=== PATIENT | female | born 1965 | race Caucasian/White ===

== ENCOUNTER 2022-03-25 17:59 | Emergency (ER) | payer SELFPAY ==
[2022-03-25] MEDS ORDERED: ALPRAZolam 0.5 MG TAB ONE (18:25)
[2022-03-25] MEDS ORDERED: Meclizine HCl 25 MG TAB ONE (18:26)
== END 2022-03-25 20:13 | disposition home or self-care (01) ==
LOC: MADERS 17:59
DX: R42 Dizziness and giddiness (principal); H66.92 Otitis media, unspecified, left ear; E78.5 Hyperlipidemia, unspecified; E78.00 Pure hypercholesterolemia, unspecified; I10 Essential (primary) hypertension
CPT/HCPCS: 36416; 70450; 93005

== ENCOUNTER 2023-02-19 12:03 | Emergency (ER) | payer OTHER, SELFPAY ==
[2023-02-19] MEDS ORDERED: Ipratropium/Albuterol 3 ML NEB ONE ×2 (14:22→18:22)
[2023-02-19] MEDS ORDERED: LevoFLOXacin 750 mg/D5W 150 ml Premix Bag ONE (15:49)
[2023-02-19] MEDS ORDERED: methylPREDNISolone Sod Succ/PF 125 MG/2 ML VIAL ONE (15:49)
[2023-02-19] MEDS ORDERED: Magnesium 2 GM/50 ML BAG (IN WATER) ONE (15:49)
[2023-02-19 16:00] LABS: #Basophils 0.1 thou/uL (0.0-0.2); #Eosinphils 0.2 thou/uL (0.0-0.7); #Monocytes 0.5 thou/uL (0.11-0.59); #Neutrophils 6.8 thou/uL (1.40-6.50); %Basophils 0.9 % (0.0-1.0); %Eosinophils 1.8 % (0.0-10.0); %Lymphocytes 28.5 % (21.0-51.0); %Monocytes 4.8 % (0.0-10.0); %Neutrophils 64.1 % (42.0-75.0); Hematocrit 42.8 % (36.0-47.0); Hemoglobin 14.4 g/dL (12.0-16.0); Mean Corpuscular HGB CONC 33.7 g/dL (32.0-36.0); Mean Corpuscular Hemoglobin 31.4 pg (27.0-31.0); Mean Corpuscular Volume 93.4 fl (78.0-98.0); Mean Platelet Volume 6.3 fL (7.4-10.4); Platelet Count 387 10x3/uL (130-400); RBC Distribution Width 13.5 % (11.5-14.5); Red Blood Cell (RBC) Count 4.58 mill/uL (4.20-5.40); White Blood Cell (WBC) Count 10.7 10x3/uL (4.8-10.8)
[2023-02-19 16:15] LABS: ALT (SGPT) 14 U/L (8-55); AST (SGOT) 16 U/L (5-34); Alkaline Phosphatase 86 U/L (40-110); Anion Gap 16 mmol/L (10-20); BUN (Urea Nitrogen) 16 mg/dL (9.8-20.1); Bilirubin, Total 0.3 mg/dL (0.2-1.2); Calc. Creatinine Clearance 0 mL/min (70-130); Calcium 9.3 mg/dL (7.8-10.44); Carbon Dioxide 25 mmol/L (22-29); Chloride 101 mmol/L (98-107); Estimated GFR 77; Glucose 123 mg/dL (70-105); Magnesium 2.3 mg/dL (1.6-2.6); Sodium 138 mmol/L (136-145); Troponin I 0.013 ng/mL (< 0.028)
== END 2023-02-19 19:25 | disposition home or self-care (01) ==
LOC: MADERS 12:03
DX: R06.02 Shortness of breath (principal); F17.210 Nicotine dependence, cigarettes, uncomplicated; I10 Essential (primary) hypertension; Z20.822 Contact with and (suspected) exposure to COVID-19
CPT/HCPCS: 71046; 80053; 83735; 83880; 84484; 85025; 85379; 87635; 87804; 93005; 96365; 96367; 96375; J1956; J2930; J3475; J7620

== ENCOUNTER 2023-02-28 15:29 | Emergency (ER) | payer OTHER ==
[2023-02-28] MEDS ORDERED: methylPREDNISolone Sod Succ/PF 125 MG/2 ML VIAL ONE (15:55)
[2023-02-28] MEDS ORDERED: Ipratropium/Albuterol 3 ML NEB ONE (15:55)
[2023-02-28 16:16] LABS: #Basophils 0.1 thou/uL (0.0-0.2); #Eosinphils 0.2 thou/uL (0.0-0.7); #Lymphocytes 2.7 thou/uL (1.20-3.40); #Monocytes 0.5 thou/uL (0.11-0.59); %Basophils 0.8 % (0.0-1.0); %Eosinophils 1.6 % (0.0-10.0); %Lymphocytes 21.6 % (21.0-51.0); %Monocytes 4.1 % (0.0-10.0); %Neutrophils 71.9 % (42.0-75.0); Hematocrit 41.2 % (36.0-47.0); Hemoglobin 13.2 g/dL (12.0-16.0); Mean Corpuscular HGB CONC 31.9 g/dL (32.0-36.0); Mean Corpuscular Hemoglobin 30.4 pg (27.0-31.0); Mean Corpuscular Volume 95.4 fl (78.0-98.0); Mean Platelet Volume 6.5 fL (7.4-10.4); Platelet Count 344 10x3/uL (130-400); Red Blood Cell (RBC) Count 4.32 mill/uL (4.20-5.40); White Blood Cell (WBC) Count 12.5 10x3/uL (4.8-10.8)
[2023-02-28 16:32] LABS: ALT (SGPT) 14 U/L (8-55); AST (SGOT) 14 U/L (5-34); Albumin 3.6 g/dL (3.5-5.0); Alkaline Phosphatase 83 U/L (40-110); Anion Gap 13 mmol/L (10-20); BUN (Urea Nitrogen) 15 mg/dL (9.8-20.1); Bilirubin, Total 0.2 mg/dL (0.2-1.2); Calc. Creatinine Clearance 0 mL/min (70-130); Calcium 8.7 mg/dL (7.8-10.44); Carbon Dioxide 27 mmol/L (22-29); Chloride 101 mmol/L (98-107); Estimated GFR 76; Glucose 113 mg/dL (70-105); Potassium 4.4 mmol/L (3.5-5.1); Protein, Total 6.6 g/dL (6.0-8.3); Sodium 137 mmol/L (136-145)
[2023-02-28 16:35] LABS: Troponin I Less than 0.010 ng/mL (< 0.028)
== END 2023-02-28 17:20 | disposition home or self-care (01) ==
LOC: MADERS 15:29
DX: J44.1 Chronic obstructive pulmonary disease with (acute) exacerbation (principal); I10 Essential (primary) hypertension; F17.210 Nicotine dependence, cigarettes, uncomplicated
CPT/HCPCS: 71045; 80053; 84484; 85025; 85379; 93005; 96374; J2930; J7620

== ENCOUNTER 2023-09-07 12:14 | Emergency (ER) | payer OTHER ==
[2023-09-07] MEDS ORDERED: methylPREDNISolone Sod Succ/PF 125 MG/2 ML VIAL ONE (12:33)
[2023-09-07] MEDS ORDERED: Ipratropium/Albuterol 3 ML NEB ONE (12:33)
[2023-09-07] MEDS ORDERED: Azithromycin 250 MG TAB ONE (12:33)
[2023-09-07] MEDS ORDERED: cefTRIAXone (ROCEPHIN) 1 GM VIAL ONE (12:33)
[2023-09-07 12:55] LABS: Anion Gap 12 mmol/L (10-20); BUN (Urea Nitrogen) 12 mg/dL (9.8-20.1); Calc. Creatinine Clearance 0 mL/min (70-130); Calcium 9.1 mg/dL (7.8-10.44); Carbon Dioxide 34 mmol/L (22-29); Chloride 100 mmol/L (98-107); Estimated GFR 101; Glucose 109 mg/dL (70-105); Hematocrit 39.5 % (36.0-47.0); Hemoglobin 11.6 g/dL (12.0-16.0); Mean Corpuscular HGB CONC 29.2 g/dL (32.0-36.0); Mean Corpuscular Hemoglobin 28.9 pg (27.0-31.0); Mean Corpuscular Volume 98.9 fl (78.0-98.0); Mean Platelet Volume 5.6 fL (7.4-10.4); Platelet Count 358 10x3/uL (130-400); Potassium 4.4 mmol/L (3.5-5.1); RBC Distribution Width 13.9 % (11.5-14.5); Red Blood Cell (RBC) Count 3.99 mill/uL (4.20-5.40); Sodium 142 mmol/L (136-145); White Blood Cell (WBC) Count 9.5 10x3/uL (4.8-10.8)
[2023-09-07 12:58] LABS: Manual Diff?? YES
[2023-09-07 12:59] LABS: Band 4 % (5-11); Eosinophils 4 % (0-10); Lymphocytes 25 % (21-51); MDiff Complete? YES; Monocytes 3 % (0-10); Neutrophil 64 % (42-75); Platelet Adequacy Comment Appears Adequate; RBC Morph Comment Within Normal Limits
[2023-09-07 13:00] LABS: Troponin I Less than 0.010 ng/mL (< 0.028)
== END 2023-09-07 13:50 | disposition home or self-care (01) ==
LOC: MADERS 12:14
DX: J44.1 Chronic obstructive pulmonary disease with (acute) exacerbation (principal); R51.9 Headache, unspecified; F17.210 Nicotine dependence, cigarettes, uncomplicated
CPT/HCPCS: 70450; 71046; 80048; 83605; 83880; 84484; 85025; 93005; 96374; 96375; J0696; J2930; J7620

== ENCOUNTER 2023-11-23 09:55 | Emergency (ER) | payer OTHER ==
[2023-11-23] MEDS ORDERED: Ipratropium/Albuterol 3 ML NEB ONE (10:12)
[2023-11-23] MEDS ORDERED: Sodium Chloride 0.9% 100 ML ONE (10:13)
[2023-11-23] MEDS ORDERED: Furosemide 40 MG (4 mL) VIAL ONE (10:13)
[2023-11-23] MEDS ORDERED: Furosemide 20 MG (2 mL) VIAL ONE (10:13)
[2023-11-23] MEDS ORDERED: hydrOXYzine 25 MG TAB ONE (10:13)
[2023-11-23] MEDS ORDERED: cefTRIAXone (ROCEPHIN) 1 GM VIAL ONE (10:13)
[2023-11-23 10:32] LABS: #Basophils 0.1 thou/uL (0.0-0.2); #Lymphocytes 2.9 thou/uL (1.20-3.40); #Monocytes 1.1 thou/uL (0.11-0.59); #Neutrophils 13.3 thou/uL (1.40-6.50); %Basophils 0.6 % (0.0-1.0); %Eosinophils 0.2 % (0.0-10.0); %Lymphocytes 16.4 % (21.0-51.0); %Neutrophils 76.7 % (42.0-75.0); Hematocrit 37.8 % (36.0-47.0); Hemoglobin 11.3 g/dL (12.0-16.0); Mean Corpuscular HGB CONC 29.8 g/dL (32.0-36.0); Mean Corpuscular Hemoglobin 29.5 pg (27.0-31.0); Mean Corpuscular Volume 98.8 fl (78.0-98.0); Mean Platelet Volume 5.5 fL (7.4-10.4); Platelet Count 313 10x3/uL (130-400); RBC Distribution Width 13.7 % (11.5-14.5); Red Blood Cell (RBC) Count 3.82 mill/uL (4.20-5.40); White Blood Cell (WBC) Count 17.4 10x3/uL (4.8-10.8)
[2023-11-23 10:40] LABS: INR-International Normal Ratio 0.9; Prothrombin Time 12.2 sec (12.0-14.7)
[2023-11-23 10:41] LABS: PTT 24.2 sec (22.9-36.1)
[2023-11-23 10:43] LABS: D-Dimer Test 0.31 mcg/mL (0.27-0.43)
[2023-11-23 10:48] LABS: Anion Gap 15 mmol/L (10-20); BUN (Urea Nitrogen) 15 mg/dL (9.8-20.1); Calc. Creatinine Clearance 0 mL/min (70-130); Calcium 9.2 mg/dL (7.8-10.44); Carbon Dioxide 31 mmol/L (22-29); Chloride 97 mmol/L (98-107); Estimated GFR 87; Glucose 169 mg/dL (70-105); Potassium 4.2 mmol/L (3.5-5.1); Sodium 139 mmol/L (136-145)
[2023-11-23 10:52] LABS: Troponin I 0.022 ng/mL (< 0.028)
[2023-11-23 11:09] LABS: Bilirubin Negative (Negative); Blood, Urine Negative (Negative); Clarity Clear (Clear); Glucose, Urine (Dipstick) Negative (Negative); Ketone, Urine Negative (Negative); Leukocyte Negative (Negative); Nitrite Negative (Negative); Protein, Urine (Dipstick) Negative (Neg-Trace); Urobilinogen 0.2 mg/dL (Less than 2); pH, Urine 5.5 (5.0-9.0)
[2023-11-23 11:11] LABS: Bacteria/HPF Rare-Few HPF (None Seen); CAUTI Indications for Culture Pelvic or flank pain; RBC/HPF 0-3 HPF (0-3); Squamous Epithelial 0-3 HPF (0-3); WBC/HPF 0-3 HPF (0-3)
[2023-11-23 11:12] LABS: Urine Culture Reflex No No
[2023-11-23 11:24] LABS: Influenza A by NAA Not Detected (NotDetected); Influenza B by NAA Not Detected (NotDetected); SARS-CoV-2 NAA Rapid Test Not Detected (NotDetected)
== END 2023-11-23 12:28 | disposition home or self-care (01) ==
LOC: MADERS 09:55
DX: J44.1 Chronic obstructive pulmonary disease with (acute) exacerbation (principal); Z87.891 Personal history of nicotine dependence; Z79.82 Long term (current) use of aspirin
CPT/HCPCS: 71045; 80048; 81001; 83880; 84484; 85025; 85379; 85610; 85730; 93005; 96374; 96375; J0696; J1940; J7620

== ENCOUNTER 2024-01-17 17:06 | Emergency (ER) | payer OTHER ==
[2024-01-17] MEDS ORDERED: Ipratropium Bromide 2.5 ml Neb ONE (17:20)
[2024-01-17] MEDS ORDERED: Albuterol 2.5 MG (0.5 mL) NEB ONE (17:20)
[2024-01-17] MEDS ORDERED: Ketorolac Tromethamine 30 MG (1 mL) VIAL ONE (17:21)
[2024-01-17] MEDS ORDERED: Acetaminophen 500 MG TAB ONE (17:21)
[2024-01-17 17:41] LABS: #Basophils 0.1 thou/uL (0.0-0.2); #Eosinphils 0.4 thou/uL (0.0-0.7); #Lymphocytes 2.7 thou/uL (1.20-3.40); #Monocytes 0.6 thou/uL (0.11-0.59); #Neutrophils 7.9 thou/uL (1.40-6.50); %Basophils 0.8 % (0.0-1.0); %Lymphocytes 23.3 % (21.0-51.0); %Monocytes 4.8 % (0.0-10.0); Hematocrit 37.1 % (36.0-47.0); Hemoglobin 11.3 g/dL (12.0-16.0); Mean Corpuscular HGB CONC 30.4 g/dL (32.0-36.0); Mean Corpuscular Hemoglobin 29.8 pg (27.0-31.0); Mean Platelet Volume 6.2 fL (7.4-10.4); Platelet Count 377 10x3/uL (130-400); RBC Distribution Width 13.2 % (11.5-14.5); Red Blood Cell (RBC) Count 3.79 mill/uL (4.20-5.40); White Blood Cell (WBC) Count 11.6 10x3/uL (4.8-10.8)
[2024-01-17 17:59] LABS: ALT (SGPT) 15 U/L (8-55); AST (SGOT) 14 U/L (5-34); Albumin 3.5 g/dL (3.5-5.0); Alkaline Phosphatase 56 U/L (40-110); Anion Gap 16 mmol/L (10-20); BUN (Urea Nitrogen) 12 mg/dL (9.8-20.1); Bilirubin, Total 0.2 mg/dL (0.2-1.2); Calc. Creatinine Clearance 0 mL/min (70-130); Calcium 9.3 mg/dL (7.8-10.44); Carbon Dioxide 30 mmol/L (22-29); Chloride 100 mmol/L (98-107); Estimated GFR 79; Globulin 3.2 g/dL (2.4-3.5); Glucose 132 mg/dL (70-105); Potassium 3.8 mmol/L (3.5-5.1); Protein, Total 6.7 g/dL (6.0-8.3); Sodium 142 mmol/L (136-145)
== END 2024-01-17 19:26 | disposition home or self-care (01) ==
LOC: MADERS 17:06
DX: J44.1 Chronic obstructive pulmonary disease with (acute) exacerbation (principal); I10 Essential (primary) hypertension; E11.9 Type 2 diabetes mellitus without complications; E78.5 Hyperlipidemia, unspecified; Z87.891 Personal history of nicotine dependence; Z79.82 Long term (current) use of aspirin; Z79.84 Long term (current) use of oral hypoglycemic drugs; Z79.899 Other long term (current) drug therapy
CPT/HCPCS: 71045; 80053; 83880; 84443; 85025; 85379; 93005; 94760; 96374; J1885; J7611; J7644

== ENCOUNTER 2025-01-04 13:00 | Emergency (ER) | payer OTHER ==
[2025-01-04] MEDS ORDERED: Albuterol 2.5 MG (3 mL) NEB ONE (13:28)
[2025-01-04] MEDS ORDERED: Albuterol 2.5 MG (0.5 mL) NEB ONE (13:28)
[2025-01-04] MEDS ORDERED: Azithromycin 500 MG VIAL ONE (13:41)
[2025-01-04] MEDS ORDERED: cefTRIAXone (ROCEPHIN) 2 GM VIAL ONE (13:41)
[2025-01-04 13:46] LABS: #Basophils 0.1 thou/uL (0.0-0.2); #Eosinophils 0.5 thou/uL (0.0-0.7); #Lymphocytes 3.6 thou/uL (1.20-3.40); #Monocytes 0.6 thou/uL (0.11-0.59); #Neutrophils 8.2 thou/uL (1.40-6.50); %Basophils 1.0 % (0.0-1.0); %Eosinophils 3.5 % (0.0-10.0); %Lymphocytes 27.8 % (21.0-51.0); %Monocytes 4.7 % (0.0-10.0); %Neutrophils 63.0 % (42.0-75.0); Hematocrit 37.5 % (36.0-47.0); Hemoglobin 11.6 g/dL (12.0-16.0); Mean Corpuscular Hemoglobin 27.8 pg (27.0-31.0); Mean Corpuscular Volume 90.2 fl (78.0-98.0); Platelet Count 512 10x3/uL (130-400); Red Blood Cell (RBC) Count 4.16 mill/uL (4.20-5.40); White Blood Cell (WBC) Count 13.0 10x3/uL (4.8-10.8)
[2025-01-04 13:52] LABS: Bicarbonate (HCO3v) 33.4 mmol/L (22.0-28.0); CO2 Tension (PvCO2) 55.8 mmHg (42.0-51.0); Calcium, Ionized 1.26 mmol/L (1.15-1.33); Chloride 100 mmol/L (98-107); Hemoglobin - Calc 12.6 g/dL (12.0-16.0); Potassium 3.6 mmol/L (3.5-5.1); Sodium 142 mmol/L (138-145); T. Carbon Dioxide 35.1 mmol/L (22.0-28.0); vO2 Saturation-calc 99.2 % (60.0-85.0)
[2025-01-04 14:03] LABS: ALT (SGPT) 8 U/L (Less than 34); AST (SGOT) 12 U/L (11-34); Albumin 3.8 g/dL (3.1-4.5); Alkaline Phosphatase 80 U/L (40-110); Anion Gap 17 mmol/L (10-20); BUN (Urea Nitrogen) 13 mg/dL (9.8-20.1); Bilirubin, Total 0.1 mg/dL (0.3-1.2); Calc. Creatinine Clearance 0 mL/min (70-130); Calcium 9.6 mg/dL (7.8-10.44); Carbon Dioxide 27 mmol/L (22-29); Chloride 102 mmol/L (98-107); Globulin 3.1 g/dL (2.4-3.5); Glucose 141 mg/dL (70-105); Potassium 3.7 mmol/L (3.5-5.1); Sodium 142 mmol/L (136-145)
[2025-01-04 14:04] LABS: Troponin I Less than 0.010 ng/mL (< 0.028)
[2025-01-04 16:47] LABS: Troponin I 0.023 ng/mL (< 0.028)
== END 2025-01-04 17:16 | disposition short-term general hospital (02) ==
LOC: MADERS 13:00
DX: J44.1 Chronic obstructive pulmonary disease with (acute) exacerbation (principal); I10 Essential (primary) hypertension; E11.9 Type 2 diabetes mellitus without complications; E78.5 Hyperlipidemia, unspecified; Z87.891 Personal history of nicotine dependence; Z79.84 Long term (current) use of oral hypoglycemic drugs; Z79.899 Other long term (current) drug therapy; Z79.51 Long term (current) use of inhaled steroids
CPT/HCPCS: 36415; 71045; 80053; 82330; 82435; 82803; 83605; 83880; 84132; 84295; 84484; 85014; 85025; 87040; 87077; 87426; 93005; 94760; 96365; 96367; J0456; J0696; J7050; J7611